=== PATIENT | male | born 1980 | race Caucasian/White ===

== ENCOUNTER 2018-09-08 06:29 | Emergency (ER) | payer OTHER ==
[2018-09-08] MEDS ORDERED: NS 1,000 ML IV ONE (06:50)
[2018-09-08 07:11] LABS: PLATELET COUNT 309 10^3/uL (150-400)
--- NOTE | 2018-09-08 07:14 | EDPHY ---
H & P Stated Complaint: L sided abd pain, N/D since 0500 Time Seen by Provider: 09/08/18 07:01 HPI/ROS: CHIEF COMPLAINT: Lightheadedness HISTORY OF PRESENT ILLNESS: 38-year-old male presents with lightheadedness. In April 2018 he was diagnosed with colitis by CT scan. Symptoms at that time were left upper quadrant pain and diarrhea. He has been on a bland diet since the dx and has a colonoscopy scheduled for later this month. Since the diagnosis he has had intermittent sharp and stabbing left upper quadrant pain. Recently associated with orthostatic dizziness. This morning he was in the car , had onset of left sided abdominal pain and became lightheaded. This prompted his visit today. The pain has resolved. No fever, vomiting or diarrhea. Did not eat or drink this morning. REVIEW OF SYSTEMS: complete 10 point ROS reviewed and is negative except for the noted elements in the HPI - Personal History Current Tetanus/Diphtheria Vaccine: Yes - Medical/Surgical History Hx Asthma: Yes Hx Chronic Respiratory Disease: No Hx Diabetes: No Hx Cardiac Disease: No Hx Renal Disease: No Hx Cirrhosis: No Hx Alcoholism: No Hx HIV/AIDS: No Hx Splenectomy or Spleen Trauma: No Other PMH: colitis, asthma - Social History Smoking Status: Never smoked Alcohol Use: Sober Drug Use: None - Physical Exam Exam: General Appearance: Alert, pleasant Eyes: Pupils equal and round, no conjunctival pallor or injection ENT, Mouth: Mucous membranes moist Neck: Normal inspection Respiratory: Lungs are clear to auscultation Cardiovascular: Regular rate and rhythm Gastrointestinal: Abdomen is soft, left upper quadrant tenderness Neurological: A&O, nonfocal, normal gait Skin: Warm and dry Extremities: Normal inspection Psychiatric: Mood and affect normal Constitutional: Initial Vital Signs Temperature (C) 36.5 C 09/08/18 06:31 Heart Rate 66 09/08/18 06:31 Respiratory Rate 18 09/08/18 06:31 Blood Pressure 159/85 H 09/08/18 06:31 O2 Sat (%) 99 09/08/18 06:31 O2 Delivery Mode Room Air Allergies/Adverse Reactions: No Known Allergies Allergy (Unverified 09/08/18 06:32) Home Medications: Medication Instructions Recorded NK [No Known Home Meds] 09/08/18 Medical Decision Making ED Course/Re-evaluation: This patient presents after an episode of lightheadedness and abdominal cramping this morning. The abdominal pain has resolved. The pain is similar to the pain he has been having over the last several months after diagnosis of colitis. IV normal saline 1 L given. Labs ordered. Laboratory tests are unremarkable and he continues to be pain-free. I do not feel that repeat abdominal imaging is indicated today. The patient ambulated throughout the emergency department and felt much better. Lightheadedness likely secondary to dehydration. Encouraged to drink plenty of fluids. Abdominal pain precautions given. Differential Diagnosis: Differential diagnosis includes though it is not limited to appendicitis, cholecystitis, diverticulitis, pyelonephritis, bowel perforation, small bowel obstruction. - Data Points Laboratory Results: Laboratory Results 09/08/18 06:42 09/08/18 06:42 09/08/18 09/08/18 06:42 06:42 WBC 6.36 10^3/uL 10^3/uL (3.80-9.50) RBC 5.34 10^6/uL 10^6/uL (4.40-6.38) Hgb 17.0 g/dL g/dL (13.7-17.5) Hct 49.9 % % (40.0-51.0) MCV 93.4 fL fL (81.5-99.8) MCH 31.8 pg pg (27.9-34.1) MCHC 34.1 g/dL g/dL (32.4-36.7) RDW 12.4 % % (11.5-15.2) Plt Count 309 10^3/uL 10^3/uL (150-400) MPV 10.6 fL fL (8.7-11.7) Neut % (Auto) 47.5 % % (39.3-74.2) Lymph % (Auto) 37.9 % % (15.0-45.0) [place] % (Auto) 10.5 % % (4.5-13.0) Eos % (Auto) 3.1 % % (0.6-7.6) Baso % (Auto) 0.8 % % (0.3-1.7) Nucleat RBC Rel Count 0.0 % % (0.0-0.2) Absolute Neuts (auto) 3.02 10^3/uL 10^3/uL (1.70-6.50) Absolute Lymphs (auto) 2.41 10^3/uL 10^3/uL (1.00-3.00) Absolute Monos (auto) 0.67 10^3/uL 10^3/uL (0.30-0.80) Absolute Eos (auto) 0.20 10^3/uL 10^3/uL (0.03-0.40) Absolute Basos (auto) 0.05 10^3/uL 10^3/uL (0.02-0.10) Absolute Nucleated RBC 0.00 10^3/uL 10^3/uL (0-0.01) Immature Gran % 0.2 % % (0.0-1.1) Immature Gran # 0.01 10^3/uL 10^3/uL (0.00-0.10) Sodium 140 mEq/L mEq/L (135-145) Potassium 4.0 mEq/L mEq/L (3.5-5.2) Chloride 107 mEq/L mEq/L (97-110) Carbon Dioxide 24 mEq/l mEq/l (22-31) Anion Gap 9 mEq/L mEq/L (6-14) BUN 16 mg/dL mg/dL (7-23) Creatinine 1.1 mg/dL mg/dL (0.7-1.3) Estimated GFR > 60 Glucose 109 mg/dL H mg/dL (70-100) Calcium 10.0 mg/dL mg/dL (8.5-10.4) Medications Given: Discontinued Medications Sodium Chloride (Ns) 1,000 mls @ 0 mls/hr IV ONCE ONE; Wide Open PRN Reason: Protocol Stop: 09/08/18 06:51 Last Admin: 09/08/18 06:52 Dose: 1,000 mls Departure - Departure Disposition: Home, Routine, Self-Care Clinical Impression: Lightheadedness Condition: Good Instructions: Lightheadedness (ED) Additional Instructions: You received 1 L of IV fluids today. Drink plenty of fluids. Eat 3 meals daily. Return for worsening symptoms or any concerns. Keep your appointment for the colonoscopy. Referrals: NONE *PRIMARY CARE P,. [Primary Care Provider] - As per Instructions
[2018-09-08 07:58] VITALS: BP 132/88
== END 2018-09-08 08:06 | disposition home or self-care (01) ==
DX: R42 Dizziness and giddiness (principal); R10.12 Left upper quadrant pain; E86.9 Volume depletion, unspecified